=== PATIENT | male | born 1945 | race Caucasian/White ===

== ENCOUNTER 2017-11-28 12:14 | Inpatient (IN) ==
[~2017-11-28 12:14] MED LIST: Adenosine 90 MG/30 ML MLS IV ONE
[2017-11-28] MEDS ORDERED: Nitroglycerin 0.4 MG TAB.SUBL SL PRN (12:59)
[2017-11-28] MEDS ORDERED: *HR* HYDROcodone/Acet 5/325 mg TABLET PO PRN (12:59)
[2017-11-28 13:09] LABS: Basophils % 0.5 %; Eosinophils # 0.2 K/mcL (0.0-0.6); Eosinophils % 2.7 %; Hemoglobin 13.3 g/dL (12.9-16.9); Immature Granulocytes % 0.3 % (0-4); Lymphocytes # 1.3 K/mcL (0.6-4.6); Lymphocytes % 16.3 %; Mean Corpuscular HGB Conc 33.3 g/dL (31.6-35.5); Mean Corpuscular Hemoglobin 28.7 pg (28.0-33.3); Mean Corpuscular Volume 86.4 fL (83.0-100.0); Mean Platelet Volume 9.5 fL (9.4-12.4); Monocytes # 0.7 K/mcL (0.0-1.3); Monocytes % 8.5 %; Neutrophils # 5.6 K/mcL (1.6-8.9); Platelet Count 169 K/mcL (140-400); Red Blood Count 4.63 M/mcL (4.19-5.50); Red Cell Distribution Width 13.2 % (11.5-14.5); Segmented Neutrophils % 71.7 %
--- NOTE | 2017-11-28 13:11 | History & Physical Report ---
Date of Encounter: 11/28/17 Time of Encounter: 13:09 24 Hour HP Update - Instructions Instructions: If the History and Physical is less than 30 days old and was completed prior to A.M. admission and or procedure and has NOT been updated on calendar day of procedure please complete this update prior to performing procedure. - Update Patient reports changes in Medical Condition: No Changes in examination, assessment, or condition: No Changes in Medication: No Preop tests/diagnostics Reviewed: Yes - Attending Attestation Please use eCW encounter dated 11/28/[address] Micaela Almanza as H&P. Pt directly admitted to cardiology service for unstable angina with plan for LHC and possible PCI. R/B/A discussed. LHC today.
[2017-11-28 13:32] LABS: BUN/Creatinine Ratio 16 (6-26); Blood Urea Nitrogen 14 mg/dL (8-23); Calcium 9.5 mg/dL (8.6-10.3); Carbon Dioxide 29 mEq/L (23-29); Chloride 103 mEq/L (98-107); Glucose 262 mg/dL (70-105); Osmolality,Calculated 292 (280-300); Potassium 4.5 mEq/L (3.5-5.1); Sodium 136 mEq/L (136-145); eGFR For Non-African Americans > 60 (> 60)
[2017-11-28] MEDS ORDERED: *HR* Dextrose 50 % in Water (Syg) 50 ML SYRINGE IVP PRN (14:21)
[2017-11-28] MEDS ORDERED: Dextrose Gel 15 GM/37.5 ML TUBE PO PRN ×2 (14:21)
[2017-11-28] MEDS ORDERED: D5% in Water 1,000 ML IVC PRN (14:21)
--- NOTE | 2017-11-28 14:55 | Pre-Sedation Evaluation ---
Pre-sedation evaluation - Pre-sedation checklist Date of procedure: 11/28/17 Procedure: [facility] Recent Vitals: Last Vital Signs Temp 98.0 F 11/28/17 12:37 Pulse 57 11/28/17 12:37 Resp 16 11/28/17 12:37 BP 145/67 11/28/17 12:37 Pulse Ox 96 11/28/17 12:37 H&P (including ROS) documented in medical record: Yes Previous reaction to sedatives/anesthetics: No Dietary Status: NPO 6 hours prior to procedure Dentition: No loose teeth or bridges ASA Classification *see protocol: CLASS II-Mild systemic disease Plan of Care: Pt appropriate candidate for procedure/moderate/conscious sedation , Risks/benefits of procedure/sedation discussed w/ patient/family Cardiac Registry (Cardio Only) - Functional Capacity Functional Capacity: >=4 METS with symptoms - Clincal Frailty Scale Clinical Frailty Scale: Managing Well
[2017-11-28] MEDS ORDERED: ISOVUE-370 200 ML INFUS..BTL IV ONE ×2 (14:57→15:52)
[2017-11-28] MEDS ORDERED: 0.9 % Sodium Chloride 1,000 ML ONE (14:57)
[2017-11-28] MEDS ORDERED: Heparin 1,000 UNITS/500 mL 500 ML ONE (14:57)
[2017-11-28] MEDS ORDERED: *HR* Heparin 10,000 UNIT/10 ML VIAL ONE (14:57)
[2017-11-28] MEDS ORDERED: Nitroglycerin 1,000 MCG/10 ML VIAL IV ONE (14:58)
[2017-11-28] MEDS ORDERED: *HR* FentaNYL (PF) 100 MCG/2 ML VIAL ONE (15:27)
[2017-11-28] MEDS ORDERED: *HR* Midazolam HCl 5 MG/5 ML VIAL IVP ONE (15:27)
--- NOTE | 2017-11-28 16:35 | Invasive Diagnostic Lab Proc ---
Name: Jh Munoz Date of Study: 11/28/2017 Date: 1945 Ht: 68.9in Medical Record#: [id number] Age: 72 Wt: 224.87lb Gender: Male BSA: 2.17 Order #: [id number] BMI: 33.31 Physicians Procedure Physician: Benjamín Saucedo MD, FACC Referring MD: Referring MD: Staff Name Position Time In Bailey, Ignacio RN Monitor 03:23 PM Jose Lazo RT (R) Monitor 03:23 PM Evelyn Thibodeaux RN 3Rd Mate 03:23 PM Cheyenne Salgado RT RT 03:24 PM Sveta Pérez RT (R) Scrub 03:24 PM Indications Indication Unstable Angina Procedures Performed Procedure L HRT ART/GRFT ANGIO Pre-Procedure Checklist Informed consent is complete signed and on chart. H&P is on chart. ID band is on and ID verified with patient. Patient NPO for procedure The procedure was described for the patient and questions were answered. ECG is on chart. Rhythm: NSR Plan of Care Patient will tolerate the procedure without complications. Adequate level of comfort will be maintained. Hemodynamics will remain stable Patient will recover from procedure without complications. Respiratory function will be maintained. Cardiac rhythm will remain stable. Patient temperature will be maintained. Patient and/or family have verbalized understanding of the procedure. Patient Education Chief Complaint/Reason for Test: Cardiac Cath Developmental Category: Geriatric (65+ years) Developmentally Appropriate for Age: Yes Learning Barriers: None Education Needs: Procedure Education Method: Verbal Information Taught: Cardiac Cath Educational Evaluation: Able to repeat information Intravenous Access Time IV Size Location DC'd Fluid/Drip Rate Units RN 20g 1 1/" Patent On Arrival Lt Antecubital 0.9NaCl Evelyn Thibodeaux RN Allergies No Known Allergies Vital Signs Time BP (mmHg) HR (bpm) O2 Sat. RR (bpm) LOC 03:25 PM / % 5 = Fully awake and oriented or at pre-proc level 03:25 PM / % 4 = Oriented but drowsy 03:40 PM / % 4 = Oriented but drowsy 03:55 PM / % 4 = Oriented but drowsy 03:23 PM 185 / 101 75 100 % 9 03:27 PM 183 / 97 73 100 % 23 03:32 PM 171 / 88 68 99 % 16 03:37 PM 160 / 91 65 100 % 12 03:42 PM 160 / 87 70 99 % 22 03:47 PM 160 / 81 73 98 % 28 03:52 PM 150 / 86 68 97 % 17 03:57 PM 140 / 81 75 97 % 17 04:02 PM 139 / 74 76 97 % 21 04:07 PM 148 / 82 71 98 % 17 Procedural Medications Time Medication Dose Units Method Given By 03:25 PM Oxygen 2 L/min nasal cannula Evelyn Thibodeaux RN 03:28 PM Versed 2 mg Intravenous Evelyn Thibodeaux RN 03:28 PM Fentanyl 50 mcg Intravenous Evelyn Thibodeaux RN 03:36 PM Lidocaine 2% 20 ml Subcutaneous Benjamín Saucedo MD, FAC 03:54 PM Heparin 4000 units Intravenous Evelyn Thibodeaux RN 03:56 PM Nitroglycerin 200 mcg Intracoronary Benjamín Saucedo MD 03:56 PM Adenosine 837 ml/hr Intravenous Evelyn Thibodeaux RN ASA Classification: CLASS II- Mild systemic disease (i.e. well-controlled diabetes, hypertension, asthma, cigarette smoking) Pamela Score Preprocedure Postprocedure Activity 2- Moves 4 extremities sustained head lift Activity 2- Moves 4 extremities sustained head lift Circulation 2- SBP +/= 20 points of pre-anesthetic level Circulation 2- SBP +/= 20 points of pre-anesthetic level Consciousness 2- Awake and alert oriented x 3 Consciousness 2- Awake and alert oriented x 3 O2 Saturation 2- Able to maintain O2 satruation of 92% on room air O2 Saturation 2- Able to maintain O2 satruation of 92% on room air Respiratory 2- Able to deep breathe and cough well Respiratory 2- Able to deep breathe and cough well Total Score 10 Total Score 10 Contrast Agent: Isovue Diagnostic Contrast: 129 ml Total Contrast: 129 ml Fluoro Dose: 8783 mGy Procedure Log Time Note Enter By 03:19 PM CathStat 03:21 PM Vitals capture started with the following parameters, Patient=Adult, Interval=5 min, Initial Otulvkuq=375 mmHg, Deflation Rate=5 mmHg, Cuff placed on Right Arm 03:22 PM Reference ECG taken 03:22 PM Recorded ECG: HR=76 Condition=Condition 1 03:23 PM HR=75 bpm, NHWF=349/101 mmhg, LjK8=365.0 %, Resp=9 B/min 03:23 PM 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 Bilateral groin prepped with Chloraprep by Cheyenne Salgado RT, then patient was draped. Skin intact. avis 03:24 PM Physician arrived 15:24 avis :24 PM ASA Class CLASS II- Mild systemic disease (i.e. well-controlled diabetes, hypertension, asthma, cigarette smoking) avis :24 PM Meet and greet completed s :24 PM Sign in performed according to hospital policy. avis 03:24 PM Procedure start 15:avis :25 PM Time: 15:24 Patient comfortable and pain free: Yes avis : PM Time: 15:25LOC: 5 = Fully awake and oriented or at pre-proc level avis : PM Time: 15:25 Oxygen on at 2 L/min per nasal cannula by Evelyn Thibodeaux RN [facility] 03:27 PM HR=73 bpm, PREU=626/97 mmhg, EbV7=728.0 %, Resp=23 B/min, Comment=nsr 03:28 PM Time: 15:28 Versed 2 mg Intravenous Given by Evelyn Thibodeaux RN [facility] 03:28 PM Time: 15:28 Fentanyl 50 mcg Intravenous Given by Evelyn Thibodeaux RN [facility] 03:28 PM Clinical Presentation: Unstable angina avis 03:32 PM HR=68 bpm, OTKW=241/88 mmhg, SpO2=99.0 %, Resp=16 B/min 03:36 PM Time out performed according to hospital policy crane 03:37 PM HR=65 bpm, PJGX=791/91 mmhg, PlA3=431.0 %, Resp=12 B/min, Comment=nsr 03:37 PM Time: 15:36 20 ml Lidocaine 2% to left groin Subcutaneous Given by Benjamín Saucedo MD, [facility] kmavis 03:38 PM Access obtained by percutaneous puncture. 5Fr 10cm Terumo [place] sheath placed in left Femoral artery. [id number] kmavis 03:39 PM 5Fr FL 4 catheter inserted over the wire DN kmavis 03:40 PM Time: 15:25LOC: 4 = Oriented but drowsy kmavis 03:40 PM Time: 15:25 Patient comfortable and pain free: Yes kmavis 03:40 PM LCA angiography performed in multiple views. kmavis 03:40 PM Recorded Pressure: Ao, HR=67, Condition=Condition 1 (Aorta) Ao 148/81/111 03:42 PM HR=70 bpm, OPZA=562/87 mmhg, SpO2=99.0 %, Resp=22 B/min, Comment=nsr 03:43 PM Catheter removed kmavis 03:43 PM 5Fr FR 4 catheter inserted over the wire DN kmavis 03:43 PM RCA angiography performed in multiple views. kmavis 03:44 PM SVG to the 1st Diagonal, 2nd Diag, 1st OM angio performed in multiple views. kmavis 03:44 PM Recorded Pressure: Ao, HR=72, Condition=Condition 1 (Aorta) Ao 146/85/114 03:46 PM Catheter removed kmavis 03:47 PM 0.035 260cm Navilyst 3mm J wire [id number] kmavis 03:47 PM HR=73 bpm, JYLB=346/81 mmhg, SpO2=98.0 %, Resp=28 B/min 03:47 PM 5Fr IM catheter inserted over the wire [id number] kmavis 03:48 PM Left ANTON to the LAD angio performed in multiple views. kmavis 03:49 PM Catheter removed kmavis 03:50 PM 5Fr Pigtail catheter inserted over the wire DN kmavis 03:51 PM Catheter selectively placed in left ventricle kmavis 03:51 PM Recorded Pressure: LV, HR=74, Condition=Condition 1 (Left Ventricle) LV 156/2/16 03:52 PM Recorded Pressure: LV, Ao, HR=69, Condition=Condition 1 (Left Ventricle) LV 153/3/12, (Aorta) Ao 152/72/107 03:52 PM Bolus angiogram of left Ventricle complete: 10 ml/sec for a total of 20 mls kmavis 03:52 PM HR=68 bpm, TQGX=665/86 mmhg, SpO2=97.0 %, Resp=17 B/min, Comment=nsr 03:52 PM Coronary Dominance: right kmavis 03:53 PM Sheath exchanged for a 6 Fr 11 cm Terumo [place] sheath [id number] kmavis 03:53 PM Inflation device was opened. kmavis 03:53 PM .014 [place] 190cm guide wire across target lesion- successful. reused? No kmavis 03:54 PM 6Fr JR 4 Cordis guide catheter was used to cannulate the PCI vessel successfully. reused? No kmavis 03:54 PM Time: 15:54 Heparin 4000 units Intravenous Given by Evelyn Thibodeaux RN kmavis 03:54 PM Asist FFR Catheter advanced to target lesion. kmavis 03:55 PM Time: 15:40 Patient comfortable and pain free: Yes kmavis 03:55 PM Time: 15:40LOC: 4 = Oriented but drowsy kmavis 03:56 PM Time: 15:56 Nitroglycerin 200 mcg Intracoronary Given by Benjamín Saucedo MD kmavis 03:57 PM HR=75 bpm, SPFZ=292/81 mmhg, SpO2=97.0 %, Resp=17 B/min 03:57 PM Time: 15:56 Adenosine 837 ml/hr administered Intravenous by Evelyn Thibodeaux RN kmavis 03:59 PM Recorded Pressure: Ao, PV1, HR=87, Condition=Condition 1 (Aorta) Ao 96/62/78, (Portal Vein) PV1 89/93/66 03:59 PM FFR Measurement: 0.85 kmavis 04:00 PM Adenosine gtt stopped. kmavis 04:00 PM Flow Wire/Catheter removed intact kmavis 04:01 PM Guide wire removed intact. kmavis 04:01 PM Guide catheter removed intact. kmavis 04:01 PM Bolus angiogram of left Femoral complete: 4 ml/sec for a total of 7 mls kmavis 04:02 PM Procedure completed at 16:02 11/28/2017 kmavis 04:02 PM Did you address CINTHYA flow and Dominance? Yes kmavis 04:02 PM HR=76 bpm, CBYR=179/74 mmhg, SpO2=97.0 %, Resp=21 B/min, Comment=nsr 04:02 PM Lesion found in Distal RCA. Pre Stenosis: 60 Pre CINTHYA Flow: kmavis 04:02 PM Right Coronary, Right Posterior Descending Arteries with Right Posterolateral and Acute Marginal branches with 60 % stenosis. If graft is supplying this area, 0 % stenosis kmavis 04:04 PM Sign out completed: Radiation Dose 795 mGy, 8783 Gy/cm2 Fluoro Time: 5.1 Isovue 370 - 200ml contrast 129 ml given by Benjamín Saucedo MD, [facility]. Complications: NoneCardiac Rehab Consult needed: NoConfirmed administered medications: Yes kmavis 04:04 PM Isovue 370 - 200ml,1 Bottle(s) used. kmavis 04:05 PM Arterial sheath pulled, Mynx closure device used and was Successful [id number] S/N. kmavis 04:05 PM Estimated Blood Loss: less than 20cc kmavis 04:05 PM Post ECG NSR kmavis 04:05 PM Post Blood Pressure 139/74 kmavis 04:05 PM 16:05 Post Pulses Bilateral DP 1+ kmavis 04:05 PM Information taught Cardiac Cath and Mynx kmavis 04:05 PM Education needs Procedure, Plan of Care, and Responsibilities of Patient in Care kmavis 04:05 PM Learning barriers :None kmavis 04:06 PM Education Methods Verbal kmavis 04:06 PM Education evaluation Able to repeat information kmavis 04:06 PM Site status No bleeding/hematoma - Lt Groin as reported by Sites, Sveta RT (R) at 16:06 kmavis 04:06 PM Opsite applied kmavis 04:07 PM Plavix, Effient or Brilinta given No kmavis 04:07 PM HR=71 bpm, MQVV=829/82 mmhg, SpO2=98.0 %, Resp=17 B/min, Comment=nsr 04:07 PM Report given to 3B RN Pt taken to 3B Room #47. 16:07 kmavis 04:08 PM Family placed in consult room. kmavis 04:08 PM Complications: None kmavis 04:10 PM Time: 15:55LOC: 4 = Oriented but drowsy kmavis 04:10 PM Time: 15:55 Patient comfortable and pain free: Yes kmavis 04:14 PM Patient out of room: 16:14 kmavis 04:19 PM Lesion found in Proximal LAD. Pre Stenosis: 60 Pre CINTHYA Flow: kmavis 04:19 PM Lesion found in Mid LAD. Pre Stenosis: 100 Pre CINTHYA Flow: kmavis 04:19 PM Lesion found in 1st Diagonal. Pre Stenosis: 90 Pre CINTHYA Flow: kmavis 04:19 PM Lesion found in 2nd Diagonal. Pre Stenosis: 90 Pre CINTHYA Flow: kmavis 04:19 PM Lesion found in 1st Marginal. Pre Stenosis: 100 Pre CINTHYA Flow: kmavis 04:19 PM Proximal Left Anterior Descending Coronary Artery with 60% stenosis. If graft is supplying this territory, 0 % stenosis. kmavis 04:19 PM Mid/Distal Left Anterior Descending Coronary Artery and diagonal branches with 100% stenosis. If graft is supplying this area, 0 % stenosis kmavis 04:19 PM Circumflex, Obtuse Marginal, Left Posterior Descending, and Left Posterolateral Coronary Arteries with 100 % stenosis. If graft is supplying this area, 0 % stenosis kmavis Complications Complication None None Hemodynamics Pressures Site Systolic/A Wave Diastolic/V Wave Mean AO 148 81 111 AO 146 85 114 LV 156 2 16 LV 153 3 12 AO 152 72 107 AO 96 62 78 PV1 89 93 66 Post Procedure Information Blood Pressure: 139/74 mmHg Rhythm: NSR Post procedural instructions were given Closure Device Time Device Success/Fail 11/28/2017 4:05:00 PM MynxGrip Successful Site Checks Time Location Status Staff Sheath In? Note 04:06 PM Lt Groin No bleeding/hematoma Sites, Sveta RT (R) Pulses Time Site Pre-Procedure Post-Procedure Note Bilateral DP 1+ Bilateral radial 2+ 4:05:00 PM Bilateral DP 1+ Updated by Evelyn Thibodeaux RN on 11/28/2017 4:26:01 PM electronically signed on 11/28/2017 4:27:15 PM with status of Final
[2017-11-28] MEDS: Insulin LISPRO 300 UNITS/3 ML VIAL SQ SCH (17:00)
[2017-11-28] MEDS: cephALEXin 500 MG CAPSULE PO SCH (20:43)
[2017-11-28] MEDS: Gabapentin 300 MG CAPSULE PO SCH (20:43)
[2017-11-28] MEDS ORDERED: Insulin DETEMIR 100 UNIT/ML X5UNITS SQ SCH (21:00)
[2017-11-29 07:29] VITALS: BP 166/70
[2017-11-29] MEDS: Insulin LISPRO 300 UNITS/3 ML VIAL SQ SCH (07:44)
[2017-11-29] MEDS ORDERED: Furosemide 20 MG TABLET PO SCH (09:00)
[2017-11-29] MEDS ORDERED: Multivit/Ca/Min/Fe/FA 1 TAB TABLET PO SCH (09:00)
[2017-11-29] MEDS ORDERED: Aspirin Enteric Coated 81 MG Tablet PO SCH (09:00)
[2017-11-29] MEDS ORDERED: (Omega-3/Dha/Epa/Fish Oil [Fish Oil 1,000 Mg Softgel] PO SCH (09:00)
[2017-11-29] MEDS: Gabapentin 300 MG CAPSULE PO SCH (09:08)
[2017-11-29] MEDS: cephALEXin 500 MG CAPSULE PO SCH (09:08)
[2017-11-29] MEDS ORDERED: Ranolazine 500 MG TAB.ER.12H PO SCH (09:15)
--- NOTE | 2017-11-29 09:50 | Discharge Summary ---
Date of Encounter: 11/29/17 Time of Encounter: 09:00 - Discharge Diagnosis (1) CAD (coronary artery disease) Priority: Primary Status: Chronic Qualifiers: Coronary Disease-Associated Artery/Lesion type: rosebud artery [place] vs. transplanted heart: rosebud heart Associated angina: with stable angina Qualified Code(s): I25.118 - Atherosclerotic heart disease of rosebud coronary artery with other forms of angina pectoris - Hospital Course Hospital course: Mr. Munoz is a 72 year old male directly admitted from cardiology office for unstable angina symptoms. Patient underwent left heart catheterization by Dr. Suacedo 11/28/2017 and found to have patent 4 of 4 bypass grafts with patent THORNTON to mid LAD, patent SVG to diagonal 1, patent SVG to diagonal 2, patent SVG to OM1. Has distal RCA 60% stenosis with FFR of 0.85. Chest pain free today and ambulated hallway today. Past intolerance to Imdur due to hypotension. Started on Ranexa 500 mg by mouth twice a day. Left groin site education provided and postprocedure care. Patient prepping for discharge home in stable condition with family. All questions answered. - Time Spent with Patient Total time spent providing and/or coordinating discharge services: Less than 30 minutes - Discharge Medications Prescriptions: Ranolazine [Ranexa] 500 mg PO BID #60 tab.er.12h Home Medications: Aspirin [Lo-Dose Aspirin EC] 81 mg PO DAILY 05/20/17 [History] Calcium Carbonate [Calcium] 1,200 mg PO QPM 05/20/17 [History] Carvedilol 12.5 mg PO BID 05/20/17 [History] Clopidogrel [Plavix] 75 mg PO DAILY 05/20/17 [History] Furosemide [Lasix] 20 mg PO DAILY 05/20/17 [History] Gabapentin [Neurontin] 300 mg PO BID 05/20/17 [History] Insulin Glargine,Hum.rec.anlog [Lantus Solostar] 52 unit SQ HS 05/20/17 [History ] Insulin LISPRO [Humalog Kwikpen U-100] 25 - 35 unit SQ TIDWM 05/20/17 [History] Multivitamin [One Daily Essential] 1 tab PO DAILY 05/20/17 [History] Nitroglycerin [Nitrostat] 0.4 mg SL Q5M PRN 05/20/17 [History] [place]-3/Dha/Epa/Fish Oil [Fish Oil 1,000 mg Softgel] 1 cap PO DAILY 05/20/17 [ History] Potassium Chloride [Klor-Con 10] 10 meq PO DAILY 05/20/17 [History] Pravastatin Sodium [Pravachol] 40 mg PO HS 05/20/17 [History] Meclizine [Antivert] 12.5 mg PO TID PRN 10/28/17 [History] Bacitracin OINT [Ak-Tracin] 1 appl TP BID #1 tube 10/30/17 [Rx] HYDROcodone/Acet 5/325 mg [Sesser 5-325 mg] 1 tab PO Q6HR PRN 5 Days #20 tablet 10/30/17 [Rx] Lidocaine Patch [Lidoderm 5% patch] 1 each TP DAILY #30 adh..patch 10/30/17 [Rx] cephALEXin [Keflex] 500 mg PO BID #10 capsule 10/30/17 [Rx] Ranolazine [Ranexa] 500 mg PO BID #60 tab.er.12h 11/29/17 [Rx] Allergies/Adverse Reactions: 3 Allergy/AdvReac Type Severity Reaction Status Date / Time No Known Allergies Allergy Verified 05/20/17 07:49 Date of admission: 11/28/17 12:57 Primary care physician: Kiko Locke Consults: none Discharging clinician: Ravindra Wilhelm Anticipated date of discharge: 11/29/17 Physical Examination Vital Signs, Last 4 Hours Temp Pulse Resp BP Pulse Ox 11/29/17 07:28 97.9 F 59 16 166/70 96 General: Conversant, No Apparent Distress HEENT: Atraumatic, Normocephaly, Mucus Membranes Moist Neck: No JVD, Normal carotid pulses Cardiac: Reg Rate and Rhythm, Normal S1 and S2, No Murmur Lungs: Normal Breath Sounds, No Wheeze, Rales, Rhonchi Neuro: Alert and responsive, No focal deficits noted Abdomen: Soft, Non-Tender Skin: No rashes noted on visualized skin, Other (Left groin site dry and intact , mild ecchymosis, no hematoma, no bleeding, left PT and DP pulses 1+ palpable) Musculoskeletal: No Chest Wall Tenderness Extremities: No Clubbing, No Cyanosis, No Edema, Normal Pulses - Patient Status Disposition: Home, Self-Care Condition: Fair Functional capacity at discharge: independent ambulation Overall status at discharge: patient is progressing back to baseline - Discharge Instructions Follow Up With: Kiko Locke, [Primary Care Provider] - Additional Instructions: RISK FACTORS: STOP SMOKING: If you smoke, STOP. Smoking or tobacco use significantly increases your risk of heart disease because nicotine causes the arteries to narrow or constrict. It also causes fats to stick to the artery. Your chances of having a heart attack are greatly increased if you continue to smoke. For more information, call the education line for smoking cessation 1-622-UEPWOOB EAT A LOW FAT/CHOLESTEROL/SODIUM DIET: This diet may help reduce your chances of having a heart attack. LIFTING: Avoid lifting anything more than 10 pounds for 5-7 days Prior to straining, laughing, sneezing and/or coughing, apply manual pressure directly over insertion site. ACTIVITY: You may walk or climb stairs as tolerated You can resume sexual activity as tolerated In general, you are encouraged to engage in a minimum of 30 minutes or more of moderate intensity physical activity, such as brisk walking, daily or at least 3 -4 times weekly BATHING Do not submerge the site into water (bath tub, hot tub, swimming pool) for 1 week. This can be a source for infection into the blood stream. You may shower after 24 hours SITE CARE: After 24 hours, you may remove the dressing and leave the site open to air. Keep the site clean and dry. Clean gently and pat dry. You can expect bruising and tenderness that gradually resolve within a week or two. Return to work as instructed per your physician Resume driving as instructed per physician Keep all scheduled follow up appointments Resume medications as instructed IMPORTANT: If prescribed a Platelet Aggregation Inhibitor such as, Plavix, Brilinta or Effient: Duration of therapy is minimum one year These medications are often used in combination with Aspirin in prevention of future heart attacks Never discontinue unless consult with your Etiology Teacher STROKE (CVA) Risk factors for a stroke are: Age, cigarette smoking, diabetes, excessive alcohol consumption, family history, high blood pressure, overweight, physical inactivity, prior stroke, heart attack, diagnosis of carotid artery stenosis or other artery disease. Warning signs: Sudden numbness or weakness of the face, arm or leg; especially on one side of the body, sudden confusion, trouble speaking or understanding, sudden trouble seeing in one or both eyes, sudden trouble walking, dizziness, loss of balance or coordination, sudden severe headache with no cause. Call 911 or go to the Emergency Room. CONGESTIVE HEART FAILURE: If you have been diagnosed with Congestive Heart Failure (CHF) and your symptoms return, make an appointment with your physician Weigh yourself daily. Notify your physician if you have a weight gain of two or more pounds in one day or five or more pounds in one week. If you experience any difficulty breathing, please call 911 BLEEDING: Although the risk of bleeding is minimal, it can happen. If you have any bleeding from the site, apply firm pressure above the puncture site for 10-15 minutes. If the bleeding does not stop, continue manual pressure and call 911 Contact your physician if: You develop a fever greater than 101 degrees Fahrenheit Your site becomes reddened or has any drainage You have an increase in pain or burning at the site or if a large knot forms at the site. If you experience chest pain, shortness of breath, dizziness, or extreme tiredness, stop the activity and rest. Please notify your physicians office if you experience any of these symptoms and they are not relieved by rest please call 911! - Diet and Activity Activity: increase activity as tolerated Diet: diabetic diet, low fat, low cholesterol, low salt diet
== END 2017-11-29 12:13 | disposition home or self-care (01) | DRG 287 ==
LOC: 3BNU
PROVIDERS: ADMIT Internal Medicine Cardiovascular Disease; ATTEND Internal Medicine Cardiovascular Disease

== ENCOUNTER 2020-04-03 13:32 | Inpatient (IN) ==
[2020-04-03] MEDS ORDERED: CeFAZolin Syr 2,000MG/20 ML 2,000 MG/20 ML SYRINGE IVPB ONE (13:56)
[2020-04-03] MEDS ORDERED: Ringers Solution, Lactated 1,000 ML IVC SCH (14:00)
[2020-04-03] MEDS ORDERED: *HR* FentaNYL (PF) 100 MCG/2 ML VIAL ONE ×2 (14:37→14:57)
[2020-04-03] MEDS ORDERED: Ropivacaine/PF 0.5% 30 ML VIAL ONE (14:38)
[2020-04-03] MEDS ORDERED: Ondansetron 4 MG/2 ML VIAL IVP PRN ×2 (14:41→17:46)
[2020-04-03] MEDS ORDERED: *HR* HYDROmorphone PF 0.5 MG/0.5 ML SYRINGE IVP PRN (14:41)
[2020-04-03] MEDS ORDERED: *HR* OxyCODONE Immed Rel 5 MG TABLET PO PRN ×2 (14:41→17:46)
[2020-04-03] MEDS ORDERED: Lidocaine -MPF 2% 2 ML VIAL ONE (14:57)
[2020-04-03] MEDS ORDERED: *HR* Midazolam HCl 2 MG/2 ML VIAL ONE (14:57)
[2020-04-03] MEDS ORDERED: *HR* Propofol 200 MG/20 ML VIAL IVP ONE (14:57)
[2020-04-03] MEDS ORDERED: Vancomycin 1,000 MG VIAL ONE (15:09)
[2020-04-03] MEDS ORDERED: Ethanol\\Acetic Acid\\Na Ace\\Ben 1,000 ML IRRIG.SOLN IR ONE (15:09)
[2020-04-03] MEDS ORDERED: Ondansetron 4 MG/2 ML VIAL ONE (15:13)
[2020-04-03] MEDS ORDERED: Metoclopramide 10 MG/2 ML VIAL ONE (15:36)
[2020-04-03] MEDS ORDERED: *HR* Succinylcholine 200 MG/10 ML VIAL IVP ONE (15:43)
[2020-04-03] MEDS ORDERED: EPHEDrine 50 MG/ML VIAL ONE (15:56)
[2020-04-03] MEDS ORDERED: Povidone-Iodine 45 ML, Sodium Chloride IRRigation 1,000 ML IR ONE (17:10)
[2020-04-03 17:36] LABS: Hematocrit 42.2 % (37.5-50.1); Hemoglobin 14.1 g/dL (12.9-16.9)
[2020-04-03] MEDS ORDERED: D5% in Water 1,000 ML IVC PRN (17:46)
[2020-04-03] MEDS ORDERED: *HR* Dextrose 50 % in Water (Vial) 50 ML VIAL IVP PRN (17:46)
[2020-04-03] MEDS ORDERED: Nitroglycerin 0.4 MG TAB.SUBL SL PRN (17:46)
[2020-04-03] MEDS ORDERED: Sennosides 8.6 MG TABLET PO PRN (17:46)
[2020-04-03] MEDS ORDERED: Furosemide 20 MG TABLET PO PRN (17:46)
[2020-04-03] MEDS ORDERED: *HR* OxyCODONE/APAP 5/325 TABLET PO PRN (17:46)
[2020-04-03] MEDS ORDERED: MOM Conc 10 ML UD.LIQ PO PRN (17:46)
[2020-04-03] MEDS ORDERED: Naloxone 0.4 MG/ML INJ IVP PRN (17:46)
[2020-04-03] MEDS ORDERED: Dextrose Gel 15 GM/37.5 ML TUBE PO PRN ×2 (17:46)
[2020-04-03] MEDS ORDERED: *HR* Enoxaparin 30 MG/0.3 ML SYRINGE SQ SCH (18:00)
[2020-04-03] MEDS: Simethicone 80 MG TAB.CHEW PO SCH ×2 (18:45→22:00)
[2020-04-03] MEDS: Insulin LISPRO 300 UNITS/3 ML VIAL SUBQ SCH (18:45)
[2020-04-03] MEDS: *HR* Enoxaparin 30 MG/0.3 ML SYRINGE SQ SCH (18:47)
[2020-04-03] MEDS: Ringers Solution, Lactated 1,000 ML IVC SCH (18:50)
[2020-04-03] MEDS: carvediloL 25 MG TABLET PO SCH (18:50)
[2020-04-03] MEDS ORDERED: Insulin LISPRO 300 UNITS/3 ML VIAL SUBQ SCH (21:00)
[2020-04-03] MEDS ORDERED: Melatonin 3 MG TABLET PO SCH (21:00)
[2020-04-03] MEDS: Gabapentin 300 MG CAPSULE PO SCH (22:00)
[2020-04-03] MEDS: CeFAZolin 2 GM/120 ML BAG IVPB SCH (23:38)
[2020-04-04] MEDS: *HR* Enoxaparin 30 MG/0.3 ML SYRINGE SQ SCH (05:22)
[2020-04-04] MEDS: Ringers Solution, Lactated 1,000 ML IVC SCH (05:22)
[2020-04-04 06:37] LABS: Hematocrit 37.9 % (37.5-50.1)
[2020-04-04 06:58] LABS: BUN/Creatinine Ratio 16 (6-26); Blood Urea Nitrogen 12 mg/dL (8-23); Calcium 8.7 mg/dL (8.6-10.3); Carbon Dioxide 28 mEq/L (23-29); Chloride 98 mEq/L (98-107); Glucose 249 mg/dL (70-105); Osmolality,Calculated 282 (280-300); Potassium 4.9 mEq/L (3.5-5.1); Sodium 132 mEq/L (136-145); eGFR For African Americans > 60 (> 60); eGFR For Non-African Americans > 60 (> 60)
[2020-04-04] MEDS ORDERED: Ranolazine 500 MG TAB.ER.12H PO SCH (09:00)
[2020-04-04] MEDS ORDERED: Aspirin Enteric Coated 81 MG Tablet PO SCH (09:00)
[2020-04-04] MEDS ORDERED: FLUoxetine 20 MG CAPSULE PO SCH (09:00)
[2020-04-04] MEDS ORDERED: Sennosides/Docusate Sodium TABLET PO SCH (09:00)
[2020-04-04] MEDS ORDERED: Insulin DETEMIR 100 UNIT/ML X5UNITS SUBQ SCH (09:00)
[2020-04-04] MEDS ORDERED: MECOBALAMIN PO SCH (09:00)
[2020-04-04] MEDS ORDERED: Fluticasone Propionate Nasal 50 MCG/SPRAY BOTTLE NS SCH (09:00)
[2020-04-04] MEDS: carvediloL 25 MG TABLET PO SCH (09:27)
[2020-04-04] MEDS: CeFAZolin 2 GM/120 ML BAG IVPB SCH (09:27)
[2020-04-04] MEDS: Simethicone 80 MG TAB.CHEW PO SCH ×2 (09:28→12:12)
[2020-04-04] MEDS: Gabapentin 300 MG CAPSULE PO SCH (09:29)
[2020-04-04] MEDS: Insulin LISPRO 300 UNITS/3 ML VIAL SUBQ SCH ×2 (09:32→12:11)
[2020-04-04 15:44] VITALS: BP 132/75
[2020-04-04] MEDS ORDERED: Famotidine 20 MG TABLET PO SCH (18:00)
== END 2020-04-04 15:52 | disposition home or self-care (01) | DRG 483 ==
LOC: SAMDAY 13:32 → 3NENU 17:32
PROVIDERS: ADMIT Orthopaedic Surgery; ATTEND Orthopaedic Surgery

== ENCOUNTER 2020-06-13 13:16 | Inpatient (IN) ==
[2020-06-13] MEDS ORDERED: Isovue-370 500 ML BOTTLE IVP ONE (13:51)
[2020-06-13 14:23] LABS: Bilirubin,Urine Negative (Negative); Blood,Urine Negative (Negative); Clarity,Urine Clear (Clear); Color,Urine Yellow (Yellow); Glucose,Urine (UA) 500 mg/dL (Normal); Ketones,Urine Negative (Negative); Leukocyte Esterase,Urine Negative (Negative); Mucus,Urine Few per lpf (None-Few); Nitrite,Urine Negative (Negative); Protein,Urine Trace mg/dL (Neg-Trace); RBC,Urine 0-3 per hpf (0-3); Specific Gravity,Urine 1.023 (1.010-1.025); Squamous Epithelial Cell,Urine Few per hpf (None-Few); Urobilinogen,Urine Normal (Normal)
[2020-06-13 14:31] LABS: Basophils # 0.1 K/mcL (0.0-0.2); Basophils % 0.8 %; Eosinophils # 0.2 K/mcL (0.0-0.6); Eosinophils % 2.4 %; Hematocrit 40.3 % (37.5-50.1); Hemoglobin 13.5 g/dL (12.9-16.9); Immature Granulocytes % 0.6 % (0-4); Lymphocytes # 1.4 K/mcL (0.6-4.6); Lymphocytes % 18.9 %; Mean Corpuscular HGB Conc 33.5 g/dL (31.6-35.5); Mean Corpuscular Volume 89.6 fL (83.0-100.0); Mean Platelet Volume 9.6 fL (9.4-12.4); Monocytes # 0.7 K/mcL (0.0-1.3); Neutrophils # 4.9 K/mcL (1.6-8.9); Platelet Count 138 K/mcL (140-400); Red Cell Distribution Width 12.6 % (11.5-14.5); Segmented Neutrophils % 68.3 %; White Blood Count 7.2 K/mcL (4.3-11.1)
[2020-06-13 15:15] LABS: Alanine Aminotransferase 15 Units/L (7-52); Albumin 3.8 g/dL (3.5-5.7); Albumin/Globulin Ratio 1.3 (1.1-2.2); Alkaline Phosphatase 58 Units/L (34-104); Aspartate Amino Transferase 11 Units/L (13-39); BUN/Creatinine Ratio 16 (6-26); Bilirubin,Indirect 0.4 mg/dL (0.0-1.0); Bilirubin,Total 0.4 mg/dL (0.3-1.0); Blood Urea Nitrogen 12 mg/dL (8-23); Calcium 9.3 mg/dL (8.6-10.3); Carbon Dioxide 30 mEq/L (23-29); Chloride 100 mEq/L (98-107); Glucose 150 mg/dL (70-105); Lipase 6 Units/L (11-82); Osmolality,Calculated 287 (280-300); Potassium 4.1 mEq/L (3.5-5.1); Sodium 137 mEq/L (136-145); Total Protein 6.8 g/dL (6.4-8.9); Troponin I 0.04 ng/mL (< 0.04); eGFR For African Americans > 60 (> 60); eGFR For Non-African Americans > 60 (> 60)
[2020-06-13] MEDS ORDERED: Aspirin 325 MG TABLET PO ONE (16:56)
[2020-06-13] MEDS ORDERED: Naloxone 0.4 MG/ML INJ IVP PRN (17:41)
[2020-06-13] MEDS ORDERED: Ondansetron 4 MG/2 ML VIAL IVP PRN (17:41)
[2020-06-13] MEDS ORDERED: *HR* Dextrose 50 % in Water (Vial) 50 ML VIAL IVP PRN (18:08)
[2020-06-13] MEDS ORDERED: Dextrose Gel 15 GM/37.5 ML TUBE PO PRN ×2 (18:08)
[2020-06-13] MEDS ORDERED: D5% in Water 1,000 ML IVC PRN (18:08)
[2020-06-13] MEDS ORDERED: Nitroglycerin 0.4 MG TAB.SUBL SL PRN (18:40)
[2020-06-13 18:55] LABS: Magnesium 1.7 mg/dL (1.6-2.6)
[2020-06-13 18:58] LABS: Troponin I 0.04 ng/mL (< 0.04)
[2020-06-13] MEDS: Insulin LISPRO 300 UNITS/3 ML VIAL SUBQ SCH (20:33)
[2020-06-13 21:22] LABS: Estimated Average Glucose 157 mg/dl; Hemoglobin A1C 7.1 %
[2020-06-13] MEDS: *HR* Heparin 5,000 UNIT/ML VIAL SQ SCH (22:17)
[2020-06-14 00:39] LABS: Basophils # 0.1 K/mcL (0.0-0.2); Basophils % 0.9 %; Eosinophils # 0.2 K/mcL (0.0-0.6); Eosinophils % 2.6 %; Hematocrit 38.5 % (37.5-50.1); Hemoglobin 12.8 g/dL (12.9-16.9); Immature Granulocytes % 0.5 % (0-4); Lymphocytes # 1.2 K/mcL (0.6-4.6); Lymphocytes % 21.1 %; Mean Corpuscular HGB Conc 33.2 g/dL (31.6-35.5); Mean Corpuscular Hemoglobin 29.7 pg (28.0-33.3); Mean Corpuscular Volume 89.3 fL (83.0-100.0); Mean Platelet Volume 9.4 fL (9.4-12.4); Monocytes # 0.6 K/mcL (0.0-1.3); Monocytes % 9.8 %; Neutrophils # 3.7 K/mcL (1.6-8.9); Platelet Count 125 K/mcL (140-400); Red Blood Count 4.31 M/mcL (4.19-5.50); Red Cell Distribution Width 12.6 % (11.5-14.5); Segmented Neutrophils % 65.1 %; White Blood Count 5.7 K/mcL (4.3-11.1)
[2020-06-14 00:53] LABS: BUN/Creatinine Ratio 14 (6-26); Blood Urea Nitrogen 10 mg/dL (8-23); Calcium 8.9 mg/dL (8.6-10.3); Carbon Dioxide 28 mEq/L (23-29); Chloride 103 mEq/L (98-107); Glucose 239 mg/dL (70-105); Osmolality,Calculated 289 (280-300); Potassium 3.9 mEq/L (3.5-5.1); Sodium 136 mEq/L (136-145); eGFR For African Americans > 60 (> 60); eGFR For Non-African Americans > 60 (> 60)
[2020-06-14] MEDS: *HR* Heparin 5,000 UNIT/ML VIAL SQ SCH (03:54)
[2020-06-14] MEDS: Insulin LISPRO 300 UNITS/3 ML VIAL SUBQ SCH ×4 (08:48→21:29)
[2020-06-14] MEDS: carvediloL 6.25 MG TABLET PO SCH ×2 (08:49→17:51)
[2020-06-14] MEDS: Aspirin Enteric Coated 81 MG Tablet PO SCH (08:49)
[2020-06-14] MEDS: Famotidine 20 MG TABLET PO SCH (08:50)
[2020-06-14] MEDS ORDERED: Acetaminophen 325 MG TABLET PO PRN (10:49)
[2020-06-14] MEDS ORDERED: Perflutren Lipid Microsphere 1.3 ML in 0.9 % Sodium Chloride 8.7 ML IVP PRN (12:05)
[2020-06-14] MEDS ORDERED: Melatonin 3 MG TABLET PO PRN (16:36)
[2020-06-14] MEDS ORDERED: Sennosides/Docusate Sodium TABLET PO PRN (16:36)
[2020-06-14] MEDS: Sucralfate 1 GM TABLET PO SCH (17:52)
[2020-06-14] MEDS: Gabapentin 300 MG CAPSULE PO SCH (21:28)
[2020-06-14] MEDS: Simethicone 80 MG TAB.CHEW PO SCH (21:29)
[2020-06-15 02:59] LABS: Basophils % 0.5 %; Eosinophils # 0.2 K/mcL (0.0-0.6); Eosinophils % 3.4 %; Hematocrit 37.9 % (37.5-50.1); Hemoglobin 12.9 g/dL (12.9-16.9); Immature Granulocytes % 0.5 % (0-4); Lymphocytes # 1.3 K/mcL (0.6-4.6); Lymphocytes % 23.1 %; Mean Corpuscular Hemoglobin 29.9 pg (28.0-33.3); Mean Corpuscular Volume 87.9 fL (83.0-100.0); Mean Platelet Volume 9.2 fL (9.4-12.4); Monocytes # 0.5 K/mcL (0.0-1.3); Monocytes % 9.4 %; Neutrophils # 3.5 K/mcL (1.6-8.9); Platelet Count 131 K/mcL (140-400); Red Blood Count 4.31 M/mcL (4.19-5.50); Red Cell Distribution Width 12.4 % (11.5-14.5); Segmented Neutrophils % 63.1 %; White Blood Count 5.5 K/mcL (4.3-11.1)
[2020-06-15 03:18] LABS: BUN/Creatinine Ratio 13 (6-26); Blood Urea Nitrogen 10 mg/dL (8-23); Carbon Dioxide 26 mEq/L (23-29); Chloride 103 mEq/L (98-107); Glucose 246 mg/dL (70-105); Magnesium 1.6 mg/dL (1.6-2.6); Osmolality,Calculated 289 (280-300); Sodium 136 mEq/L (136-145); eGFR For African Americans > 60 (> 60); eGFR For Non-African Americans > 60 (> 60)
[2020-06-15] MEDS ORDERED: Regadenoson 0.4 MG/5 ML SYRINGE IVP ONE (06:04)
[2020-06-15] MEDS ORDERED: Fluticasone Propionate Nasal 50 MCG/SPRAY BOTTLE NS SCH (09:00)
[2020-06-15] MEDS ORDERED: FLUoxetine 20 MG CAPSULE PO SCH (09:00)
[2020-06-15] MEDS ORDERED: carvediloL 6.25 MG TABLET PO SCH ×2 (09:00)
[2020-06-15] MEDS ORDERED: Ranolazine 500 MG TAB.ER.12H PO SCH ×2 (09:00→21:00)
[2020-06-15] MEDS: Gabapentin 300 MG CAPSULE PO SCH (09:38)
[2020-06-15] MEDS: Simethicone 80 MG TAB.CHEW PO SCH (09:38)
[2020-06-15] MEDS: Famotidine 20 MG TABLET PO SCH (09:39)
[2020-06-15] MEDS: Sucralfate 1 GM TABLET PO SCH (09:39)
[2020-06-15] MEDS: Aspirin Enteric Coated 81 MG Tablet PO SCH (09:39)
[2020-06-15 11:05] VITALS: BP 155/77
[2020-06-15] MEDS: Insulin LISPRO 300 UNITS/3 ML VIAL SUBQ SCH ×2 (12:10→12:27)
[2020-06-15] MEDS: carvediloL 6.25 MG TABLET PO SCH (12:31)
== END 2020-06-15 16:23 | disposition home or self-care (01) | DRG 303 ==
LOC: EMEROOARM 13:16 → 3BNU 13:16 → SUATTDRO 17:22 → 3BNU 18:55
PROVIDERS: ADMIT Internal Medicine; ATTEND Internal Medicine

== ENCOUNTER 2020-07-20 01:04 | Inpatient (IN) ==
[2020-07-20] MEDS ORDERED: Ondansetron 4 MG/2 ML VIAL IVP ONE (01:12)
[2020-07-20] MEDS ORDERED: Isovue-370 500 ML BOTTLE IVP ONE (01:26)
[2020-07-20] MEDS ORDERED: 0.9 % Sodium Chloride 500 ML IVC ONE (01:27)
[2020-07-20 01:49] LABS: Basophils # 0.1 K/mcL (0.0-0.2); Eosinophils # 0.2 K/mcL (0.0-0.6); Eosinophils % 2.2 %; Hematocrit 40.3 % (37.5-50.1); Hemoglobin 13.5 g/dL (12.9-16.9); Immature Granulocytes % 0.4 % (0-4); Lymphocytes # 1.4 K/mcL (0.6-4.6); Mean Corpuscular HGB Conc 33.5 g/dL (31.6-35.5); Mean Corpuscular Hemoglobin 29.8 pg (28.0-33.3); Mean Platelet Volume 9.8 fL (9.4-12.4); Monocytes # 0.7 K/mcL (0.0-1.3); Monocytes % 9.6 %; Neutrophils # 4.5 K/mcL (1.6-8.9); Platelet Count 141 K/mcL (140-400); Red Blood Count 4.53 M/mcL (4.19-5.50); Red Cell Distribution Width 12.5 % (11.5-14.5); Segmented Neutrophils % 66.8 %; White Blood Count 6.8 K/mcL (4.3-11.1)
[2020-07-20 02:06] LABS: Albumin 3.8 g/dL (3.5-5.7); Albumin/Globulin Ratio 1.2 (1.1-2.2); Bilirubin,Direct 0.1 mg/dL (0.0-0.2); Bilirubin,Indirect 0.2 mg/dL (0.0-1.0); Bilirubin,Total 0.3 mg/dL (0.3-1.0); Globulin 3.1 g/dL (2.4-3.5); Total Protein 6.9 g/dL (6.4-8.9)
[2020-07-20 02:09] LABS: BUN/Creatinine Ratio 14 (6-26); Blood Urea Nitrogen 11 mg/dL (8-23); Calcium 9.1 mg/dL (8.6-10.3); Carbon Dioxide 29 mEq/L (23-29); Chloride 103 mEq/L (98-107); Glucose 143 mg/dL (70-105); Osmolality,Calculated 286 (280-300); Potassium 4.1 mEq/L (3.5-5.1); Sodium 137 mEq/L (136-145); eGFR For African Americans > 60 (> 60); eGFR For Non-African Americans > 60 (> 60)
[2020-07-20 02:17] LABS: Troponin I 0.04 ng/mL (< 0.04)
[2020-07-20 02:19] LABS: Thyroid Stimulating Hormone 1.649 mcIU/mL (0.340-5.600)
[2020-07-20 03:05] LABS: Bilirubin,Urine Negative (Negative); Blood,Urine Negative (Negative); Clarity,Urine Clear (Clear); Color,Urine Yellow (Yellow); Glucose,Urine (UA) Normal (Normal); Ketones,Urine Negative (Negative); Leukocyte Esterase,Urine Negative (Negative); Nitrite,Urine Negative (Negative); Protein,Urine Trace mg/dL (Neg-Trace); Specific Gravity,Urine 1.026 (1.010-1.025); Urobilinogen,Urine Normal (Normal)
[2020-07-20] MEDS ORDERED: Ondansetron 4 MG/2 ML VIAL IVP PRN (05:15)
[2020-07-20] MEDS ORDERED: 0.9 % Sodium Chloride 1,000 ML IVC SCH (05:15)
[2020-07-20] MEDS ORDERED: Naloxone 0.4 MG/ML INJ IVP PRN (05:15)
[2020-07-20] MEDS ORDERED: Acetaminophen 325 MG TABLET PO PRN (05:15)
[2020-07-20] MEDS ORDERED: *HR* Dextrose 50 % in Water (Vial) 50 ML VIAL IVP PRN (05:48)
[2020-07-20] MEDS ORDERED: Dextrose Gel 15 GM/37.5 ML TUBE PO PRN ×2 (05:48)
[2020-07-20] MEDS ORDERED: D5% in Water 1,000 ML IVC PRN (05:48)
[2020-07-20] MEDS ORDERED: *HR* Promethazine 25 MG/ML VIAL IM PRN (05:48)
[2020-07-20 06:08] LABS: Adenovirus Not Detected (Not Detect); Bordetella Pertussis Not Detected (Not Detect); Chlamydophila pneumoniae Not Detected (Not Detect); Coronavirus 229E Not Detected (Not Detect); Coronavirus HKU1 Not Detected (Not Detect); Coronavirus NL63 Not Detected (Not Detect); Coronavirus OC43 Not Detected (Not Detect); Human Metapneumovirus Not Detected (Not Detect); Human Rhinovirus/Enterovirus Not Detected (Not Detect); Influenza A Subtype 2009 H1 Not Detected (Not Detect); Influenza B Not Detected (Not Detect); Mycoplasma pneumoniae Not Detected (Not Detect); Parainfluenza Virus 1 Not Detected (Not Detect); Parainfluenza Virus 2 Not Detected (Not Detect); Parainfluenza Virus 3 Not Detected (Not Detect); Parainfluenza Virus 4 Not Detected (Not Detect); Respiratory Syncytial Virus Not Detected (Not Detect); SARS-CoV-2 Not Detected (Not Detect)
[2020-07-20] MEDS: Insulin LISPRO 300 UNITS/3 ML VIAL SUBQ SCH ×4 (08:39→20:59)
[2020-07-20] MEDS ORDERED: ACETAMINOPHEN 650 MG PO PRN (14:05)
[2020-07-20] MEDS: Sennosides/Docusate Sodium TABLET PO SCH (20:56)
[2020-07-20] MEDS: Sucralfate 1 GM TABLET PO SCH (20:56)
[2020-07-20] MEDS: Famotidine 20 MG TABLET PO SCH (20:56)
[2020-07-21] MEDS: Cyanocobalamin (B-12) 1,000 MCG TABLET PO SCH (08:44)
[2020-07-21] MEDS: Sucralfate 1 GM TABLET PO SCH ×2 (08:44→21:20)
[2020-07-21] MEDS: Ranolazine 500 MG TAB.ER.12H PO SCH (08:45)
[2020-07-21] MEDS: Aspirin Enteric Coated 81 MG Tablet PO SCH (08:45)
[2020-07-21] MEDS: FLUoxetine 20 MG CAPSULE PO SCH (08:45)
[2020-07-21] MEDS: Insulin DETEMIR 100 UNIT/ML X5UNITS SUBQ SCH (08:45)
[2020-07-21] MEDS: Insulin LISPRO 300 UNITS/3 ML VIAL SUBQ SCH ×4 (08:46→21:02)
[2020-07-21] MEDS: Fluticasone Propionate Nasal 50 MCG/SPRAY BOTTLE NS SCH (08:46)
[2020-07-21] MEDS: carvediloL 25 MG TABLET PO SCH ×2 (12:06→17:26)
[2020-07-21] MEDS: Sennosides/Docusate Sodium TABLET PO SCH (21:19)
[2020-07-21] MEDS: Famotidine 20 MG TABLET PO SCH (21:20)
[2020-07-22] MEDS: Insulin LISPRO 300 UNITS/3 ML VIAL SUBQ SCH ×3 (07:21→16:58)
[2020-07-22] MEDS: Sucralfate 1 GM TABLET PO SCH ×2 (08:47→21:19)
[2020-07-22] MEDS: FLUoxetine 20 MG CAPSULE PO SCH (08:47)
[2020-07-22] MEDS: carvediloL 6.25 MG TABLET PO SCH ×2 (08:47→16:57)
[2020-07-22] MEDS: Cyanocobalamin (B-12) 1,000 MCG TABLET PO SCH (08:47)
[2020-07-22] MEDS: Aspirin Enteric Coated 81 MG Tablet PO SCH (08:47)
[2020-07-22] MEDS: Loratadine 10 MG TABLET PO SCH (08:47)
[2020-07-22] MEDS: Ranolazine 500 MG TAB.ER.12H PO SCH (08:47)
[2020-07-22] MEDS: Fluticasone Propionate Nasal 50 MCG/SPRAY BOTTLE NS SCH (08:50)
[2020-07-22] MEDS: Insulin DETEMIR 100 UNIT/ML X5UNITS SUBQ SCH (08:52)
[2020-07-22] MEDS ORDERED: NIFEdipine XL (24 HR) 60 MG TAB.ER.24 PO SCH (09:00)
[2020-07-22] MEDS: Sennosides/Docusate Sodium TABLET PO SCH (21:19)
[2020-07-22] MEDS: Famotidine 20 MG TABLET PO SCH (21:20)
[2020-07-23] MEDS: Insulin LISPRO 300 UNITS/3 ML VIAL SUBQ SCH ×3 (08:02→16:49)
[2020-07-23] MEDS: Cyanocobalamin (B-12) 1,000 MCG TABLET PO SCH (08:11)
[2020-07-23] MEDS: Ranolazine 500 MG TAB.ER.12H PO SCH (08:11)
[2020-07-23] MEDS: Loratadine 10 MG TABLET PO SCH (08:11)
[2020-07-23] MEDS: Sucralfate 1 GM TABLET PO SCH ×2 (08:11→21:39)
[2020-07-23] MEDS: carvediloL 6.25 MG TABLET PO SCH ×2 (08:11→16:48)
[2020-07-23] MEDS: FLUoxetine 20 MG CAPSULE PO SCH (08:12)
[2020-07-23] MEDS: Aspirin Enteric Coated 81 MG Tablet PO SCH (08:12)
[2020-07-23] MEDS: Insulin DETEMIR 100 UNIT/ML X5UNITS SUBQ SCH (08:15)
[2020-07-23] MEDS: Fluticasone Propionate Nasal 50 MCG/SPRAY BOTTLE NS SCH (08:16)
[2020-07-23] MEDS ORDERED: NIFEdipine XL (24 HR) 30 MG TAB.ER.24 PO SCH (09:00)
[2020-07-23] MEDS: polyethylene glycoL 3350 17 GM POWD.PACK PO SCH (09:09)
[2020-07-23] MEDS: Sennosides/Docusate Sodium TABLET PO SCH ×2 (09:09→21:39)
[2020-07-23 10:28] LABS: Basophils % 0.6 %; Eosinophils # 0.2 K/mcL (0.0-0.6); Eosinophils % 2.6 %; Hemoglobin 14.5 g/dL (12.9-16.9); Immature Granulocytes % 0.5 % (0-4); Lymphocytes # 1.3 K/mcL (0.6-4.6); Lymphocytes % 19.2 %; Mean Corpuscular HGB Conc 34.5 g/dL (31.6-35.5); Mean Corpuscular Hemoglobin 29.8 pg (28.0-33.3); Mean Corpuscular Volume 86.2 fL (83.0-100.0); Mean Platelet Volume 9.5 fL (9.4-12.4); Monocytes # 0.7 K/mcL (0.0-1.3); Monocytes % 9.8 %; Neutrophils # 4.4 K/mcL (1.6-8.9); Platelet Count 144 K/mcL (140-400); Red Blood Count 4.87 M/mcL (4.19-5.50); Red Cell Distribution Width 12.5 % (11.5-14.5); Segmented Neutrophils % 67.3 %; White Blood Count 6.6 K/mcL (4.3-11.1)
[2020-07-23 10:42] LABS: Estimated Average Glucose 151 mg/dl; Hemoglobin A1C 6.9 %
[2020-07-23 10:45] LABS: BUN/Creatinine Ratio 14 (6-26); Blood Urea Nitrogen 11 mg/dL (8-23); Calcium 9.1 mg/dL (8.6-10.3); Carbon Dioxide 27 mEq/L (23-29); Chloride 100 mEq/L (98-107); Glucose 186 mg/dL (70-105); Magnesium 1.6 mg/dL (1.6-2.6); Osmolality,Calculated 284 (280-300); Potassium 3.9 mEq/L (3.5-5.1); Sodium 135 mEq/L (136-145); eGFR For African Americans > 60 (> 60); eGFR For Non-African Americans > 60 (> 60)
[2020-07-23] MEDS: Famotidine 20 MG TABLET PO SCH (21:39)
[2020-07-24 03:20] LABS: Basophils % 0.5 %; Eosinophils # 0.2 K/mcL (0.0-0.6); Eosinophils % 2.4 %; Hematocrit 40.6 % (37.5-50.1); Immature Granulocytes % 0.5 % (0-4); Lymphocytes # 1.7 K/mcL (0.6-4.6); Mean Corpuscular HGB Conc 34.5 g/dL (31.6-35.5); Mean Corpuscular Hemoglobin 30.2 pg (28.0-33.3); Mean Corpuscular Volume 87.5 fL (83.0-100.0); Mean Platelet Volume 9.6 fL (9.4-12.4); Monocytes # 0.7 K/mcL (0.0-1.3); Monocytes % 9.4 %; Neutrophils # 4.8 K/mcL (1.6-8.9); Platelet Count 142 K/mcL (140-400); Red Blood Count 4.64 M/mcL (4.19-5.50); Red Cell Distribution Width 12.6 % (11.5-14.5); Segmented Neutrophils % 64.2 %; White Blood Count 7.5 K/mcL (4.3-11.1)
[2020-07-24 03:36] LABS: BUN/Creatinine Ratio 15 (6-26); Blood Urea Nitrogen 12 mg/dL (8-23); Calcium 8.9 mg/dL (8.6-10.3); Carbon Dioxide 26 mEq/L (23-29); Chloride 101 mEq/L (98-107); Glucose 126 mg/dL (70-105); Magnesium 1.7 mg/dL (1.6-2.6); Osmolality,Calculated 283 (280-300); Sodium 136 mEq/L (136-145); eGFR For African Americans > 60 (> 60); eGFR For Non-African Americans > 60 (> 60)
[2020-07-24] MEDS: Insulin LISPRO 300 UNITS/3 ML VIAL SUBQ SCH ×3 (08:20→16:50)
[2020-07-24] MEDS: polyethylene glycoL 3350 17 GM POWD.PACK PO SCH (09:01)
[2020-07-24] MEDS: carvediloL 6.25 MG TABLET PO SCH ×2 (09:13→16:49)
[2020-07-24] MEDS: Aspirin Enteric Coated 81 MG Tablet PO SCH (09:13)
[2020-07-24] MEDS: Loratadine 10 MG TABLET PO SCH (09:15)
[2020-07-24] MEDS: FLUoxetine 20 MG CAPSULE PO SCH (09:15)
[2020-07-24] MEDS: NIFEdipine XL (24 HR) 60 MG TAB.ER.24 PO SCH (09:16)
[2020-07-24] MEDS: Cyanocobalamin (B-12) 1,000 MCG TABLET PO SCH (09:19)
[2020-07-24] MEDS: Ranolazine 500 MG TAB.ER.12H PO SCH (09:19)
[2020-07-24] MEDS: Sucralfate 1 GM TABLET PO SCH ×2 (09:20→20:14)
[2020-07-24] MEDS: Sennosides/Docusate Sodium TABLET PO SCH ×2 (09:21→20:14)
[2020-07-24] MEDS: Insulin DETEMIR 100 UNIT/ML X5UNITS SUBQ SCH (09:23)
[2020-07-24] MEDS: Fluticasone Propionate Nasal 50 MCG/SPRAY BOTTLE NS SCH (09:23)
[2020-07-24] MEDS ORDERED: Ondansetron 4 MG/2 ML VIAL IVP ONE (09:30)
[2020-07-24] MEDS ORDERED: Simethicone/Sodium Bic/Citr Ac 1 EACH GRAN.EF.PK PO ONE (11:56)
[2020-07-24] MEDS ORDERED: E-Z-PAQUE (BARIUM SULF) SUSP 1 BOTTLE PO ONE (11:56)
[2020-07-24] MEDS: Famotidine 20 MG TABLET PO SCH (20:14)
[2020-07-25 06:04] LABS: Basophils # 0.1 K/mcL (0.0-0.2); Basophils % 0.9 %; Eosinophils # 0.2 K/mcL (0.0-0.6); Eosinophils % 3.4 %; Immature Granulocytes % 0.4 % (0-4); Lymphocytes # 1.5 K/mcL (0.6-4.6); Lymphocytes % 21.3 %; Mean Corpuscular HGB Conc 33.3 g/dL (31.6-35.5); Mean Corpuscular Hemoglobin 29.4 pg (28.0-33.3); Mean Corpuscular Volume 88.2 fL (83.0-100.0); Mean Platelet Volume 9.4 fL (9.4-12.4); Monocytes # 0.7 K/mcL (0.0-1.3); Monocytes % 9.9 %; Neutrophils # 4.5 K/mcL (1.6-8.9); Platelet Count 145 K/mcL (140-400); Red Blood Count 4.76 M/mcL (4.19-5.50); Red Cell Distribution Width 12.4 % (11.5-14.5); Segmented Neutrophils % 64.1 %
[2020-07-25 06:20] LABS: BUN/Creatinine Ratio 17 (6-26); Blood Urea Nitrogen 15 mg/dL (8-23); Calcium 9.2 mg/dL (8.6-10.3); Carbon Dioxide 29 mEq/L (23-29); Chloride 101 mEq/L (98-107); Glucose 161 mg/dL (70-105); Magnesium 1.8 mg/dL (1.6-2.6); Osmolality,Calculated 284 (280-300); Potassium 4.2 mEq/L (3.5-5.1); Sodium 135 mEq/L (136-145); eGFR For African Americans > 60 (> 60); eGFR For Non-African Americans > 60 (> 60)
[2020-07-25] MEDS: Sennosides/Docusate Sodium TABLET PO SCH (07:51)
[2020-07-25] MEDS: NIFEdipine XL (24 HR) 60 MG TAB.ER.24 PO SCH (07:51)
[2020-07-25] MEDS: Ranolazine 500 MG TAB.ER.12H PO SCH (07:52)
[2020-07-25] MEDS: Sucralfate 1 GM TABLET PO SCH ×2 (07:52→20:17)
[2020-07-25] MEDS: Aspirin Enteric Coated 81 MG Tablet PO SCH (07:52)
[2020-07-25] MEDS: FLUoxetine 20 MG CAPSULE PO SCH (07:52)
[2020-07-25] MEDS: Cyanocobalamin (B-12) 1,000 MCG TABLET PO SCH (07:52)
[2020-07-25] MEDS: Loratadine 10 MG TABLET PO SCH (07:52)
[2020-07-25] MEDS: carvediloL 6.25 MG TABLET PO SCH ×2 (07:53→17:01)
[2020-07-25] MEDS: Insulin LISPRO 300 UNITS/3 ML VIAL SUBQ SCH ×3 (07:55→16:57)
[2020-07-25] MEDS: polyethylene glycoL 3350 17 GM POWD.PACK PO SCH (07:58)
[2020-07-25] MEDS: Fluticasone Propionate Nasal 50 MCG/SPRAY BOTTLE NS SCH (08:00)
[2020-07-25] MEDS: Insulin DETEMIR 100 UNIT/ML X5UNITS SUBQ SCH (08:04)
[2020-07-25 15:34] VITALS: BP 102/71
[2020-07-25 19:03] LABS: Adenovirus Not Detected (Not Detect); Bordetella Pertussis Not Detected (Not Detect); Chlamydophila pneumoniae Not Detected (Not Detect); Coronavirus 229E Not Detected (Not Detect); Coronavirus HKU1 Not Detected (Not Detect); Coronavirus NL63 Not Detected (Not Detect); Coronavirus OC43 Not Detected (Not Detect); Human Metapneumovirus Not Detected (Not Detect); Human Rhinovirus/Enterovirus Not Detected (Not Detect); Influenza A Subtype 2009 H1 Not Detected (Not Detect); Influenza B Not Detected (Not Detect); Mycoplasma pneumoniae Not Detected (Not Detect); Parainfluenza Virus 1 Not Detected (Not Detect); Parainfluenza Virus 2 Not Detected (Not Detect); Parainfluenza Virus 3 Not Detected (Not Detect); Parainfluenza Virus 4 Not Detected (Not Detect); Respiratory Syncytial Virus Not Detected (Not Detect); SARS-CoV-2 Not Detected (Not Detect)
[2020-07-25] MEDS: Famotidine 20 MG TABLET PO SCH (20:17)
== END 2020-07-25 20:44 | DRG 392 ==
LOC: CDU 01:04 → EMEROOARM 01:04 → SUATTDRO 04:50 → 3BNU 05:01 → SUATTDRO 07-21 14:50
PROVIDERS: ADMIT Student in an Organized Health Care Education/Training Program; ATTEND Pharmacist